=== PATIENT | female | born 1940 | race Caucasian/White ===

== ENCOUNTER → 2016-12-14 | Outpatient (CLI) | payer OTHER ==
--- NOTE | 2016-12-14 12:02 | CT ---
CT Chest High-Resolution History: Emphysema, dyspnea, former smoker. Comparison: CT chest May 31, 2015. CT angiogram chest November 01, 2014. Technique: Axial unenhanced images were obtained through the lungs with noncontiguous high-resolution images through the lungs in the supine position with and without expiration and in the prone positio n. Coronal MIPs were performed. Dose reduction techniques were utilized. Findings: A 3 mm noncalcified left lower lobe nodule (series 7, image 134) is new since the compariso ns. A 5 mm noncalcified nodule in the right upper lobe (image 79) is also new. Two 5 mm noncalcified left upper lobe nodules (series 7, images 87 and 91) are new since the comparisons. There are multipl e additional tiny new noncalcified pulmonary nodules. Previously referenced noncalcified nodules are unchanged. Moderate to severe centrilobular emphysema with an apical predominance is stable. Mild per ibronchial thickening is noted. There is no significant air-trapping. Mild cardiomegaly is stable. Th ree-vessel coronary artery atherosclerosis is again noted. Atherosclerosis is present in the aorta, w ith borderline ectasia of the ascending aorta. No pathologically enlarged lymph nodes are identified. A subcentimeter hypodensity in the liver is thp-ebbzz-[id number]-characterize. Cholelithiasis is present is an otherwise normal gallbladder. A small hiatal hernia is present. Colonic diverticulosis is present without evidence of diverticulitis. Sternotomy is noted with an intact superior sternotomy wire, with partial fusion of the inferior sternum. Mild degenerative change is present in the spine. Impression: 1. Scattered noncalcified pulmonary nodules new since the comparison, measuring up to 5 mm. Follow up unenhanced chest CT is recommended in 6 months per Fleischner Society guidelines. 2. Stable emphysema. 3. Cholelithiasis without evidence of cholecystitis. 4. Coronary artery atherosclerosis. 5. Additional findings as above. Findings discussed with Gualberto Michele's medical research assistant, on December 13, 2016, at [address] rs.
== END ==
LOC: FIMAGING 09:51
PROVIDERS: ATTEND Internal Medicine Pulmonary Disease
DX: R91.8 Other nonspecific abnormal finding of lung field (principal); J43.2 Centrilobular emphysema; K80.20 Calculus of gallbladder without cholecystitis without obstruction; I25.10 Atherosclerotic heart disease of native coronary artery without angina pectoris; Z87.891 Personal history of nicotine dependence

== ENCOUNTER → 2017-02-06 | Outpatient (CLI) | payer OTHER | LOC: BMCIMAGING 14:32 | PROVIDERS: ATTEND Internal Medicine Rheumatology | DX: Z13.820 Encounter for screening for osteoporosis (principal); M81.0 Age-related osteoporosis without current pathological fracture ==

== ENCOUNTER → 2017-05-13 | Outpatient (CLI) | payer OTHER | LOC: BMCIMAGING 13:15 | PROVIDERS: ATTEND Internal Medicine | DX: Z12.31 Encounter for screening mammogram for malignant neoplasm of breast (principal); Z80.3 Family history of malignant neoplasm of breast | CPT/HCPCS: G0202 ==

== ENCOUNTER → 2017-06-10 | Outpatient (CLI) | payer OTHER | LOC: FIMAGING 10:50 | PROVIDERS: ATTEND Internal Medicine Pulmonary Disease | DX: R91.1 Solitary pulmonary nodule (principal); R91.8 Other nonspecific abnormal finding of lung field; J43.9 Emphysema, unspecified; Z87.891 Personal history of nicotine dependence ==

== ENCOUNTER → 2018-01-09 | Outpatient (CLI) | payer OTHER | LOC: FIMAGING 13:48 | PROVIDERS: ATTEND Internal Medicine Pulmonary Disease | DX: R91.1 Solitary pulmonary nodule (principal); J43.9 Emphysema, unspecified; J47.9 Bronchiectasis, uncomplicated; Z95.1 Presence of aortocoronary bypass graft ==

== ENCOUNTER → 2018-01-17 | Outpatient (CLI) | payer OTHER | LOC: BMCIMAGING 09:34 | PROVIDERS: ATTEND Internal Medicine Rheumatology | DX: Z13.820 Encounter for screening for osteoporosis (principal); M85.89 Other specified disorders of bone density and structure, multiple sites; Z78.0 Asymptomatic menopausal state ==

== ENCOUNTER → 2018-02-17 | Outpatient (CLI) | payer OTHER | LOC: BMCIMAGING 14:37 | PROVIDERS: ATTEND Internal Medicine Rheumatology | DX: M25.511 Pain in right shoulder (principal); M25.512 Pain in left shoulder; M19.011 Primary osteoarthritis, right shoulder; M19.012 Primary osteoarthritis, left shoulder ==

== ENCOUNTER → 2018-02-26 | Outpatient (CLI) | payer OTHER | LOC: BMCIMAGING 14:20 | PROVIDERS: ATTEND Family Medicine | DX: M79.671 Pain in right foot (principal); M25.561 Pain in right knee ==

== ENCOUNTER → 2018-05-14 | Outpatient (CLI) | payer OTHER | LOC: BMCIMAGING 12:56 | PROVIDERS: ATTEND Internal Medicine | DX: Z12.31 Encounter for screening mammogram for malignant neoplasm of breast (principal) ==

== ENCOUNTER → 2019-03-12 | Outpatient (CLI) | payer OTHER | LOC: FIMAGING 11:40 | PROVIDERS: ATTEND Orthopaedic Surgery | DX: S43.401A Unspecified sprain of right shoulder joint, initial encounter (principal); M26.81 Anterior soft tissue impingement; M75.51 Bursitis of right shoulder; M75.31 Calcific tendinitis of right shoulder ==

== ENCOUNTER → 2019-05-25 | Outpatient (CLI) | payer OTHER | LOC: BMCIMAGING 12:15 ==